=== PATIENT | female | born 1940 | race Caucasian/White ===

== ENCOUNTER 2017-05-14 08:53 | Outpatient (CLI) | payer OTHER | END 2017-05-14 08:54 | disposition home or self-care (01) | LOC: LAB 08:53 | DX: E78.2 Mixed hyperlipidemia (principal); I11.9 Hypertensive heart disease without heart failure ==

== ENCOUNTER → 2017-07-03 | Outpatient (CLI) | payer OTHER | END | disposition home or self-care (01) | LOC: LAB 09:23 | DX: E11.9 Type 2 diabetes mellitus without complications (principal); I10 Essential (primary) hypertension; D64.89 Other specified anemias; E78.2 Mixed hyperlipidemia; E03.8 Other specified hypothyroidism; E55.9 Vitamin D deficiency, unspecified; D01.0 Carcinoma in situ of colon; N39.8 Other specified disorders of urinary system; N39.0 Urinary tract infection, site not specified; K92.1 Melena; K73.8 Other chronic hepatitis, not elsewhere classified; B18.8 Other chronic viral hepatitis; Z12.12 Encounter for screening for malignant neoplasm of rectum; K76.1 Chronic passive congestion of liver; R80.8 Other proteinuria; R30.0 Dysuria; L56.8 Other specified acute skin changes due to ultraviolet radiation; D63.8 Anemia in other chronic diseases classified elsewhere; E78.00 Pure hypercholesterolemia, unspecified; K76.89 Other specified diseases of liver ==

== ENCOUNTER 2017-07-23 08:03 | Outpatient (CLI) | payer OTHER | END 2017-07-23 08:10 | disposition home or self-care (01) | LOC: LAB 08:03 | DX: E11.9 Type 2 diabetes mellitus without complications (principal); E78.2 Mixed hyperlipidemia; E03.8 Other specified hypothyroidism; D63.8 Anemia in other chronic diseases classified elsewhere ==

== ENCOUNTER 2017-09-16 08:36 | Outpatient (CLI) | payer OTHER | END 2017-09-16 08:48 | disposition home or self-care (01) | LOC: LAB 08:36 | DX: Z12.11 Encounter for screening for malignant neoplasm of colon (principal); E78.2 Mixed hyperlipidemia; I10 Essential (primary) hypertension; I11.9 Hypertensive heart disease without heart failure ==

== ENCOUNTER → 2017-11-08 09:35 | Outpatient (CLI) | payer OTHER | END | disposition home or self-care (01) | LOC: LAB 09:35 | DX: E78.4 Other hyperlipidemia (principal); K21.0 Gastro-esophageal reflux disease with esophagitis; R10.13 Epigastric pain; D68.8 Other specified coagulation defects; D64.89 Other specified anemias; E78.2 Mixed hyperlipidemia; E03.8 Other specified hypothyroidism; E11.9 Type 2 diabetes mellitus without complications ==

== ENCOUNTER 2018-01-01 08:54 | Outpatient (CLI) | payer OTHER | END 2018-01-01 09:01 | disposition home or self-care (01) | LOC: LAB 08:54 | DX: M81.0 Age-related osteoporosis without current pathological fracture (principal); E55.9 Vitamin D deficiency, unspecified ==

== ENCOUNTER 2018-03-10 09:17 | Outpatient (CLI) | payer OTHER | END 2018-03-10 09:26 | disposition home or self-care (01) | LOC: LAB 09:17 | DX: E78.00 Pure hypercholesterolemia, unspecified (principal); I10 Essential (primary) hypertension ==

== ENCOUNTER 2018-04-04 07:55 | Outpatient (CLI) | payer OTHER | END 2018-04-04 15:00 | disposition home or self-care (01) | LOC: LAB 07:55 | DX: I11.9 Hypertensive heart disease without heart failure (principal); E78.2 Mixed hyperlipidemia; D64.89 Other specified anemias; D68.8 Other specified coagulation defects; N39.0 Urinary tract infection, site not specified; R82.8 Abnormal findings on cytological and histological examination of urine ==

== ENCOUNTER 2018-07-16 08:53 | Outpatient (CLI) | payer OTHER | END 2018-07-16 09:09 | disposition home or self-care (01) | LOC: LAB 08:53 | DX: N39.0 Urinary tract infection, site not specified (principal); D50.8 Other iron deficiency anemias; I10 Essential (primary) hypertension; D64.89 Other specified anemias; E78.49 Other hyperlipidemia; E55.9 Vitamin D deficiency, unspecified ==

== ENCOUNTER 2018-08-05 07:45 | Outpatient (CLI) | payer OTHER | END 2018-08-05 07:49 | disposition home or self-care (01) | LOC: LAB 07:45 | DX: E78.2 Mixed hyperlipidemia (principal); I11.9 Hypertensive heart disease without heart failure ==

== ENCOUNTER → 2018-09-05 08:20 | Outpatient (CLI) | payer OTHER | END | disposition home or self-care (01) | LOC: LAB 08:20 | DX: I10 Essential (primary) hypertension (principal); E78.00 Pure hypercholesterolemia, unspecified ==

== ENCOUNTER 2018-09-08 14:31 | Outpatient (CLI) | payer OTHER | END 2018-09-08 14:38 | disposition home or self-care (01) | LOC: RAD 501 14:31 | DX: M54.2 Cervicalgia (principal) ==

== ENCOUNTER 2018-12-30 08:40 | Outpatient (CLI) | payer OTHER | END 2018-12-30 08:46 | disposition home or self-care (01) | LOC: LAB 08:40 | DX: E78.2 Mixed hyperlipidemia (principal); I11.9 Hypertensive heart disease without heart failure ==

== ENCOUNTER 2019-02-19 08:15 | Emergency (ER) | payer OTHER ==
[~2019-02-19] VITALS: Ht 160 cm; Wt 50.8 kg
[2019-02-19] MEDS ORDERED: COZAAR50 MG PO (08:28)
[2019-02-19] MEDS ORDERED: BISOPROLOL FUMAR5 MG PO (08:28)
[2019-02-19] MEDS ORDERED: AMLODIPINE-OLM1 EAC2 PO (08:30)
[2019-02-19] MEDS ORDERED: PANTOPRAZOLE SO40 MG PO (08:31)
[2019-02-19] MEDS ORDERED: SIMVASTATIN5 MG PO (08:31)
[2019-02-19] MEDS ORDERED: PROLIA60 MG/1 ML (08:32)
== END 2019-02-19 09:26 | disposition home or self-care (01) ==
LOC: ER 08:15
DX: S00.531A Contusion of lip, initial encounter (principal); S80.212A Abrasion, left knee, initial encounter; S80.211A Abrasion, right knee, initial encounter; W01.198A Fall on same level from slipping, tripping and stumbling with subsequent striking against other object, initial encounter; Y93.01 Activity, walking, marching and hiking; Y92.480 Sidewalk as the place of occurrence of the external cause; Y99.8 Other external cause status

== ENCOUNTER 2019-05-19 11:06 | Emergency (ER) | payer OTHER ==
[~2019-05-19] VITALS: Ht 160 cm; Wt 49.9 kg
[~2019-05-19 11:06] MED LIST: AMLODIPINE-OLM1 EAC2 PO; BISOPROLOL FUMAR5 MG PO; COZAAR50 MG PO; PANTOPRAZOLE SO40 MG PO; PROLIA60 MG/1 ML; SIMVASTATIN5 MG PO
== END 2019-05-19 13:50 | disposition home or self-care (01) ==
LOC: ER 11:06
DX: S60.211A Contusion of right wrist, initial encounter (principal); W22.8XXA Striking against or struck by other objects, initial encounter; Y93.89 Activity, other specified; Y92.89 Other specified places as the place of occurrence of the external cause; Y99.8 Other external cause status

== ENCOUNTER → 2019-06-09 09:35 | Outpatient (CLI) | payer OTHER | END | disposition home or self-care (01) | LOC: LAB 09:35 | DX: M06.9 Rheumatoid arthritis, unspecified (principal) ==

== ENCOUNTER 2021-02-21 13:23 | Outpatient (CLI) | payer OTHER | END 2021-02-21 13:27 | disposition home or self-care (01) | LOC: RAD 13:23 | DX: R07.89 Other chest pain (principal); J11.1 Influenza due to unidentified influenza virus with other respiratory manifestations ==

== ENCOUNTER 2021-05-30 12:28 | Outpatient (CLI) | payer OTHER | END 2021-05-30 12:35 | disposition home or self-care (01) | LOC: RAD 12:28 | PROVIDERS: ATTEND Podiatrist Foot Surgery | DX: M19.071 Primary osteoarthritis, right ankle and foot (principal); M20.41 Other hammer toe(s) (acquired), right foot ==

== ENCOUNTER 2021-05-31 08:43 | Outpatient (CLI) | payer OTHER | END 2021-05-31 13:04 | disposition home or self-care (01) | LOC: LAB 08:43 | PROVIDERS: ATTEND Internal Medicine | DX: I11.9 Hypertensive heart disease without heart failure (principal); E78.2 Mixed hyperlipidemia; E03.9 Hypothyroidism, unspecified; E55.9 Vitamin D deficiency, unspecified ==

== ENCOUNTER 2021-06-26 08:30 | Outpatient (CLI) | payer OTHER | END 2021-06-26 08:35 | disposition home or self-care (01) | LOC: LAB 08:30 | PROVIDERS: ATTEND Internal Medicine | DX: I11.9 Hypertensive heart disease without heart failure (principal); E78.2 Mixed hyperlipidemia ==

== ENCOUNTER → 2022-05-10 09:08 | Outpatient (CLI) | payer OTHER | END | disposition home or self-care (01) | LOC: LAB 09:08 | PROVIDERS: ATTEND Internal Medicine Hematology & Oncology | DX: C50.811 Malignant neoplasm of overlapping sites of right female breast (principal) ==

== ENCOUNTER 2022-06-05 09:55 | Outpatient (CLI) | payer OTHER | END 2022-06-05 09:58 | disposition home or self-care (01) | LOC: RAD 09:55 | DX: S99.921A Unspecified injury of right foot, initial encounter (principal) ==

== ENCOUNTER 2022-07-11 07:25 | Outpatient (CLI) | payer OTHER | END 2022-07-11 07:26 | disposition home or self-care (01) | LOC: LAB 07:25 | PROVIDERS: ATTEND Internal Medicine | DX: I11.9 Hypertensive heart disease without heart failure (principal); E78.2 Mixed hyperlipidemia ==

== ENCOUNTER 2022-08-20 12:03 | Outpatient (CLI) | payer OTHER | END 2022-08-20 12:06 | disposition home or self-care (01) | LOC: RAD 12:03 | PROVIDERS: ATTEND Podiatrist Foot Surgery | DX: M20.41 Other hammer toe(s) (acquired), right foot (principal); M20.42 Other hammer toe(s) (acquired), left foot ==

== ENCOUNTER 2022-08-28 11:43 | Outpatient (CLI) | payer OTHER | END 2022-08-28 11:53 | disposition home or self-care (01) | LOC: MRI 11:43 | PROVIDERS: ATTEND Podiatrist Foot Surgery | DX: M86.171 Other acute osteomyelitis, right ankle and foot (principal) | CPT/HCPCS: 73718 ==

== ENCOUNTER 2023-02-25 12:51 | Outpatient (CLI) | payer OTHER | END 2023-02-25 12:58 | disposition home or self-care (01) | LOC: RAD 12:51 | DX: M25.531 Pain in right wrist (principal); S63.501A Unspecified sprain of right wrist, initial encounter; Z91.013 Allergy to seafood; Z91.041 Radiographic dye allergy status ==

== ENCOUNTER 2024-06-01 10:57 | Emergency (ER) | payer OTHER ==
[~2024-06-01] VITALS: Ht 157.5 cm; Wt 63.5 kg
[2024-06-01] MEDS ORDERED: ANASTROZOLE1 MG (11:20)
[2024-06-01] MEDS ORDERED: CEFTRIAXONE SODIUM 1,000 MG VIAL IM STA (12:50)
[2024-06-01] MEDS ORDERED: DUI500 PO (14:53)
== END 2024-06-01 15:01 | disposition home or self-care (01) ==
LOC: ER 11:00
DX: M19.90 Unspecified osteoarthritis, unspecified site (principal); L03.90 Cellulitis, unspecified; I10 Essential (primary) hypertension; Z91.013 Allergy to seafood; Z91.041 Radiographic dye allergy status
CPT/HCPCS: 73130; 96372; 99283; J0696

== ENCOUNTER 2025-02-24 10:55 | Emergency (ER) | payer OTHER ==
[~2025-02-24] VITALS: Ht 160 cm; Wt 52.2 kg
[~2025-02-24 10:55] MED LIST changes: +ANASTROZOLE1 MG; +DUI500 PO
[2025-02-24] MEDS ORDERED: ORPHENADRINE CITRATE 30 MG/ML AMPUL IM ONE (12:30)
[2025-02-24] MEDS ORDERED: DEXAMETHASONE SODIUM PHOSPHATE 4 MG/ML VIAL IM ONE (12:30)
[2025-02-24] MEDS ORDERED: KETOROLAC TROMETHAMINE 30 MG VIAL IM ONE (12:30)
[2025-02-24] MEDS ORDERED: NORFLEX100MG PO (13:48)
[2025-02-24] MEDS ORDERED: TYLENOL ARTHRI650 MG PO (13:48)
== END 2025-02-24 13:54 | disposition home or self-care (01) ==
LOC: ER 10:55
DX: M25.532 Pain in left wrist (principal); I10 Essential (primary) hypertension; Z91.013 Allergy to seafood; Z91.041 Radiographic dye allergy status